=== PATIENT | male | born 2000 ===

== ENCOUNTER 2021-07-29 00:32 | Observation (INO) ==
[2021-07-29] MEDS ORDERED: SODIUM CHLORIDE 0.9% 1,000 ML IV STA (01:07)
[2021-07-29 01:38] LABS: ABG Base Excess -0.2 MMOL/L (-2.5-2.5); ABG HCO3 24.3 MMOL/L (20-26); ABG PCO2 28.7 MM HG (35-48); ABG PH 7.486 (7.35-7.45); ABG TCO2 17.8 MMOL/L (23-27)
[2021-07-29 02:29] LABS: Basophils # 0.1 10*3/uL (0.0-0.2); Basophils % 0.3 % (0.0-0.8); Eosinophils % 0.1 % (0.00-10.9); Hematocrit 48.2 VOL% (42.0-52.0); Hemoglobin 16.6 GM/DL (14.0-18.0); Immature Granulocytes Absolute 0.17 #; Lymphocytes # 1.9 10*3/uL (1.4-4.0); Mean Corpuscular HGB Conc 34.4 GM/DL (32-36); Mean Corpuscular Volume 90.6 FL (87-102); Mean Platelet Volume 10.2 FL (9.6-12.0); Monocytes % 3.8 % (1.7-12.7); Neutrophils % 83.8 % (38.7-73.9); Platelet Count 244 T/CUMM (130-400); Red Blood Count 5.32 MC/CUMM (3.8-5.5); Red Cell Distribution Width 12.8 % (9.3-17.3); White Blood Count 16.9 T/CUMM (4-12)
[2021-07-29 02:34] LABS: Bilirubin,Urine Negative (Negative); Blood, Urine Negative (Negative); Glucose,Urine (UA) Negative (Negative); Ketones,Urine 5 mg/dL (Negative); Mucus,Urine Occasional /LPF (Occasional); Nitrite,Urine Negative (Negative); Protein,Urine 30 MG/DL; RBC,Urine 4 /HPF (0-4); Urine Appearance Slightly Hazy (Clear); Urine Color Yellow (Yellow); Urine Specific Gravity 1.025 (1.001-1.035); Urine Urobilinogen < 2.0 EU/DL (<2.0)
[2021-07-29 02:46] LABS: Barbiturates Screen,Urine Negative (Negative); Benzodiazepines Screen,Urine Negative (Negative); Cannabinoid Screen,Urine Negative (Negative); Opiate Screen,Urine Negative (Negative); Phencyclidine Screen,Urine Negative (Negative)
[2021-07-29 02:47] LABS: Alanine Aminotransferase 42 U/L (16-61); Albumin 4.2 G/DL (3.4-5.0); Alkaline Phosphatase 92 U/L (45-117); Aspartate Amino Transferase 19 U/L (0-37); Bilirubin,Total < 0.39 MG/DL (0.20-1.00); Blood Urea Nitrogen 15 MG/DL (7-18); Calcium 9.3 MG/DL (8.5-10.1); Carbon Dioxide 24 MMOL/L (21-32); Estimated Glom Filtration Rate 128 ML/MIN; Glucose 115 MG/DL (74-106); Osmolality,Calculated 278.5 MOS/KG (273-304); Potassium 3.5 MMOL/L (3.5-5.1); Sodium 139 MMOL/L (136-145); Total Protein 7.3 G/DL (6.4-8.2)
[2021-07-29] MEDS ORDERED: ONDANSETRON 4 MG/2 ML VIAL IV PRN (03:08)
[2021-07-29] MEDS ORDERED: GLUCAGON 1 MG VIAL IM PRN (03:08)
[2021-07-29] MEDS ORDERED: DEXTROSE 10% 250 ML BAG IV PRN (03:08)
[2021-07-29] MEDS ORDERED: ACETAMINOPHEN 325 MG TABLET PO PRN (03:08)
[2021-07-29] MEDS ORDERED: ALBUTEROL/IPRATROPIUM 3 ML NEB RESP TX STA (04:54)
[2021-07-29] MEDS ORDERED: ACETYLCYSTEINE 20% 800 MG/4 ML VIAL RESP TX ONE (04:54)
[2021-07-29] MEDS: ALBUTEROL/IPRATROPIUM 3 ML NEB RESP TX SCH ×3 (07:38→19:00)
[2021-07-29] MEDS: ACETYLCYSTEINE 20% 800 MG/4 ML VIAL RESP TX SCH ×3 (07:39→19:00)
[2021-07-29] MEDS: PANTOPRAZOLE 40 MG TABLET PO SCH (08:46)
[2021-07-29] MEDS ORDERED: ENOXAPARIN 40 MG/0.4 ML SYRINGE SUBCUT SCH (21:00)
[2021-07-30] MEDS: ACETYLCYSTEINE 20% 800 MG/4 ML VIAL RESP TX SCH ×2 (01:00→06:54)
[2021-07-30] MEDS: ALBUTEROL/IPRATROPIUM 3 ML NEB RESP TX SCH ×2 (01:00→06:54)
[2021-07-30 05:29] LABS: Basophils % 0.5 % (0.0-0.8); Eosinophils # 0.1 10*3/uL (0.0-0.87); Eosinophils % 1.4 % (0.00-10.9); Hematocrit 44.6 VOL% (42.0-52.0); Hemoglobin 14.7 GM/DL (14.0-18.0); Immature Granulocytes % 1.1 %; Immature Granulocytes Absolute 0.09 #; Lymphocytes # 4.8 10*3/uL (1.4-4.0); Lymphocytes % 56.2 % (21.2-54.2); Mean Corpuscular Volume 94.7 FL (87-102); Mean Platelet Volume 10.3 FL (9.6-12.0); Neutrophils % 34.8 % (38.7-73.9); Platelet Count 214 T/CUMM (130-400); Red Blood Count 4.71 MC/CUMM (3.8-5.5); Red Cell Distribution Width 13.2 % (9.3-17.3); White Blood Count 8.5 T/CUMM (4-12)
[2021-07-30 05:46] LABS: Calcium 8.8 MG/DL (8.5-10.1); Osmolality,Calculated 277.5 MOS/KG (273-304); Potassium 3.8 MMOL/L (3.5-5.1)
[2021-07-30 06:09] LABS: Eosinophils 1 % (0-10); Hypochromia 1+; Lymphocytes 59 % (20-55); Microcytosis 1+; Platelet Estimate Adequate; Segmented Neutrophils 37 % (50-85); Total Cells Counted 100
[2021-07-30 08:07] VITALS: BP 134/78
[2021-07-30] MEDS: PANTOPRAZOLE 40 MG TABLET PO SCH (08:40)
== END 2021-07-30 11:39 | disposition home or self-care (01) ==
LOC: N.EDINP 00:32 → N.ED 00:32 → SUATTDRO 03:08 → N.EDINP 09:45 → N.5E 09:58
PROVIDERS: ADMIT Internal Medicine; ATTEND Internal Medicine